=== PATIENT | female | born 1980 | race Two or more races ===

== ENCOUNTER 2025-03-30 13:05 | Emergency (ER) | payer OTHER ==
[~2025-03-30] VITALS: Ht 167.6 cm; Wt 94.1 kg
[2025-03-30 13:16] VITALS: TEMP 97.5
--- NOTE | 2025-03-30 14:28 | ED.PDOC ---
Eye-HPI HPI Comments 44-year-old female with a history of uveitis and bilateral cataract surgery brought in by family complaining of visual disturbances in her left eye, associated with eye pain for the last 2 days. Patient reports the medial aspect of her right eye visual field is �black,� and the lateral visual field appears cloudy. She also reports pressure-like eye discomfort. She denies any headache, nausea, vomiting, focal weakness or other symptoms. She states she has not been followed recently by an propeller tester. Chief Complaint: Eye Problem Time Seen by MD: 13:36 Allergies: Coded Allergies: Sulfamethoxazole w/Trimethoprim (Verified Allergy, Unknown, 03/30/25) Mode of Arrival: Ambulatory Past Medical History Past Medical History (Other): Uveitis Surgical History (Other): Bilateral cataract surgery MANAGER QA History: No Pertinent MANAGER QA History Family History Family History: Reviewed,noncontributory to illness Social History Smoker: Non-Smoker Alcohol: Denies ETOH Use Drugs: Denies Drug Use Lives In: Home All Other Systems: Reviewed and Negative (Comprehensive systems review obtained and negative except for what is stated in the HPI.) Physical Exam General Appearance: No Apparent Distress, Obese HEENT: PERRL/EOMI, Other (Face symmetric. Moist mucous membranes.) Neck: Full Range of Motion, Normal Inspection Respiratory: Lungs Clear, No Accessory Muscle Use, No Respiratory Distress, Normal Breath Sounds Cardiovascular: No Edema, No JVD, Regular Rate/Rhythm Breast Exam: Deferred Gastrointestinal: Non Tender, Soft Genitalia: Deferred Pelvic: Deferred Rectal: Deferred Extremities: Normal inspection, Normal range of motion, Non-tender, No pedal edema Neurologic: Alert (Oriented x4), pt skilled II-XII nml as Tested, Normal Affect, Normal Mood, Other (Ambulatory) Cerebellar Function: NOT DONE Reflexes: NOT DONE Skin: Dry, Normal Color, Warm Lymphatic: NOT DONE Was a procedure done? Was a procedure done?: No EENT DIFF Eye: Iritis/Uveitis, Retinal Artery Occlusion, Retinal Vein Occlusion, Other (CVA, ocular migraine, Brain space-occupying lesion, optic nerve disease, among others) X-Ray, Labs, Meds, VS Vital Signs Date Time Temp Pulse Resp B/P (MAP) Pulse Ox O2 Delivery O2 Flow Rate FiO2 03/30/25 15:03 64 16 98 Room Air* 0 21 03/30/25 15:03 64 16 165/90 (115) 98 03/30/25 13:16 97.5 71 17 155/84 (107) 97 97.5 Lab Test 03/30/25 14:33 03/30/25 13:13 Range/Units White Blood Count 8.7 4.4-10.8 10^3/uL Red Blood Count 4.86 4.0-5.20 10^6/uL Hemoglobin 13.9 12.2-16.2 g/dL Hematocrit 41.1 36.0-46.0 % Mean Corpuscular Volume 84.6 80.0-100.0 fL Mean Corpuscular Hemoglobin 28.5 28.0-32.0 pg Mean Corpuscular Hemoglobin Concent 33.7 32.0-36.0 g/dL Red Cell Distribution Width 13.9 11.8-14.3 % Platelet Count 241 140-450 10^3/uL Mean Platelet Volume 9.1 6.9-10.8 fL Neutrophils (%) (Auto) 61.8 37.0-80.0 % Lymphocytes (%) (Auto) 29.8 10.0-50.0 % Monocytes (%) (Auto) 5.8 0.0-12.0 % Eosinophils (%) (Auto) 1.8 0.0-7.0 % Basophils (%) (Auto) 0.8 0.0-2.0 % Neutrophils # (Auto) 5.4 1.6-8.6 10 ^3/uL Lymphocytes # (Auto) 2.6 0.4-5.4 10 ^3/uL Monocytes # (Auto) 0.5 0-1.3 10 ^3/uL Eosinophils # (Auto) 0.2 0-0.8 10 ^3/uL Basophils # (Auto) 0.1 0-0.2 10 ^3/uL Nucleated Red Blood Cells 0.0 % Sodium Level 141 136-145 mmol/L Potassium Level 4.0 3.5-5.1 mmol/L Chloride Level 109 H 98-107 mmol/L Carbon Dioxide Level 25 20-31 mmol/L Anion Gap 7 5-15 Blood Urea Nitrogen 10 9-23 mg/dL Creatinine 0.93 0.550-1.02 mg/dL Glomerular Filtration Rate Calc 77 >90 mL/min BUN/Creatinine Ratio 10.8 10.0-20.0 Serum Glucose 100 74-106 mg/dL Calcium Level 9.0 8.7-10.4 mg/dL POC Glucose 102 70-106 mg/dl Current Medications Medications (Trade) Dose Ordered Sig/Candace Route Start Time Stop Time Status Last Admin Acetaminophen/ Hydrocodone Bitart (Elizabeth 5/325MG Tab) 1 tab ONCE ONCE PO 03/30/25 14:30 03/30/25 14:31 DC 03/30/25 14:40 PROCEDURE(s): HWOCT - HEAD WITHOUT CONTRAST REASON: R eye medial visual field loss, lateral visual field blurry ORDER NUMBER(s): [id number], ACCESSION NUMBER(s): [id number] EXAM: CT HEAD WITHOUT CONTRAST HISTORY: R eye medial visual field loss, lateral visual field blurry COMPARISON: None TECHNIQUE: Noncontrast axial CT images of the head were performed. Sagittal and coronal reformatted images were obtained. This CT exam was performed using 1 or more of the following dose reduction techniques: Automated exposure control, adjustment of the mA and/or kv according to patient size, or the use of iterat james reconstruction techniques. Radiation Dose: CTDI volume is 55.1 mGy. Dose-length product is 993.48 mGy*cm FINDINGS: No intracranial hemorrhage, mass, midline shift, hydrocephalus, or evidence of acute large vessel infarct. There are old lacunar infarcts of the left basal ganglia (images 26-29, series 2). There are postoperative changes of bilateral cataract extraction surgery. There is mild mucosal thickening of the ethmoid air cells and left sphenoid sinus. The bilateral mastoid air cells and middle ear spaces are clear. No cranial fracture or scalp edema. IMPRESSION: 1. No acute intracranial process. 2. Mild paranasal sinus disease. X-Ray, Labs, Meds, VS Comment 44-year-old female with a history of uveitis and previous bilateral cataract surgery brought in by family for evaluation of right eye medial visual field vision loss and lateral visual field disruption Vitals remarkable for BP 155/84 Exam unremarkable for abnormal visual acuity: 20/20 corrected OD, 20/25 corrected OS. There was a right eye medial upper quadrant visual loss. Patient reports blurred vision with the right eye lateral upper and lower quadrants. Rhythm strip independently interpreted by me: Sinus rhythm, rate 71, no ectopy. CT brain without contrast: IMPRESSION: 1. No acute intracranial process. 2. Mild paranasal sinus disease. CBC, basic metabolic panel unremarkable for any abnormality of acute significan ce Patient treated with the following in the ED: Elizabeth 5/325 mg p.o. On re-evaluation, patient reports no new neurologic changes. Plan is to transfer the patient for higher level of care, ophthalmology evaluation. Case was discussed with multiple higher level of care facilities including [facility] and [facility], who were both on saturation and were unable to accept the patient. [facility] advised me they do not have retinal surgery at their facility, so declined to accept the patient. We attempted contact with [facility], however there was no answer so a voicemail message was left. [facility] was also contacted for transfer and we were awaiting a call back. 1902 the patient stated she no longer wanted to wait. I was not advised that the patient signed out against medical advice, so I did not have an opportunity to explain the risks, benefits and alternatives to treatment. Patient was alert, oriented x4 and capable of making informed decisions at the time she signed out against medical advice. I did advise her prior to our attempts to transfer of her results and the need for ophthalmologic evaluation emergently. Time of 1ST Reevaluation: 16:14 Reevaluation 1ST: Improved Patient Education/Counseling: Diagnosis, Treatment, Need For Follow Up Family Education/Counseling: No Family Present Departure 1 Departure Time of Disposition: 14:27 Impression: Primary Impression: Hemianopia of right eye Disposition: 07 LEFT AGAINST MEDICAL ADVICE Condition: Guarded Discharged With: Self Critical Care Note Critical Care Time?: No Stability Stability form required: No Heart Score Heart Score: Heart Score Response (Comments) Value History N/A 0 EKG N/A 0 Age N/A 0 Risk Factors N/A 0 Troponin N/A 0 Total 0 I personally scribed for GOGO ROBERTS MD ([email or web address]) on 03/30/25 at 16:16. Electronically submitted by Blade Hobson ([email or web address]). GOGO ROBERTS MD March 30, 2025 14:28
[2025-03-30] MEDS: HYDROcodone-ACET 5/325MG TAB PO ONE (14:40)
[2025-03-30 14:45] LABS: Basophils # (auto) 0.1 10 ^3/uL (0-0.2); Basophils % (auto) 0.8 % (0.0-2.0); Eosinophils # (auto) 0.2 10 ^3/uL (0-0.8); Eosinophils % (auto) 1.8 % (0.0-7.0); Hematocrit 41.1 % (36.0-46.0); Hemoglobin 13.9 g/dL (12.2-16.2); Lymphocytes # (auto) 2.6 10 ^3/uL (0.4-5.4); Lymphocytes % (auto) 29.8 % (10.0-50.0); Mean Corpuscular Hemoglobin 28.5 pg (28.0-32.0); Mean Corpuscular Hgb Conc. 33.7 g/dL (32.0-36.0); Mean Corpuscular Volume 84.6 fL (80.0-100.0); Monocytes # (auto) 0.5 10 ^3/uL (0-1.3); Monocytes % (auto) 5.8 % (0.0-12.0); Neutrophils # (auto) 5.4 10 ^3/uL (1.6-8.6); Neutrophils % (auto) 61.8 % (37.0-80.0); Platelet Count (auto) 241 10^3/uL (140-450); Red Blood Cells 4.86 10^6/uL (4.0-5.20); Red Cell Distribution Width 13.9 % (11.8-14.3); White Blood Cell 8.7 10^3/uL (4.4-10.8)
[2025-03-30 14:56] LABS: Anion Gap 7 (5-15); Carbon Dioxide 25 mmol/L (20-31); Sodium 141 mmol/L (136-145)
[2025-03-30 15:02] LABS: BUN/Creatinine Ratio 10.8 (10.0-20.0); Blood Urea Nitrogen 10 mg/dL (9-23); Glucose 100 mg/dL (74-106)
[2025-03-30 15:03] VITALS: BP 165/90; PULSE 64; RESP 16; O2SAT 98
[2025-03-30 15:15] LABS: Chloride 109 mmol/L (98-107)
--- NOTE | 2025-03-30 15:39 | DVH ---
EXAM: CT HEAD WITHOUT CONTRAST HISTORY: R eye medial visual field loss, lateral visual field blurry COMPARISON: None TECHNIQUE: Noncontrast axial CT images of the head were performed. Sagittal and coronal reformatted i mages were obtained. This CT exam was performed using 1 or more of the following dose reduction techn iques: Automated exposure control, adjustment of the mA and/or kv according to patient size, or the u se of iterative reconstruction techniques. Radiation Dose: CTDI volume is 55.1 mGy. Dose-length product is 993.48 mGy*cm FINDINGS: No intracranial hemorrhage, mass, midline shift, hydrocephalus, or evidence of acute large vessel inf arct. There are old lacunar infarcts of the left basal ganglia (images 26-29, series 2). There are po stoperative changes of bilateral cataract extraction surgery. There is mild mucosal thickening of the ethmoid air cells and left sphenoid sinus. The bilateral mastoid air cells and middle ear spaces are clear. No cranial fracture or scalp edema. IMPRESSION: 1. No acute intracranial process. 2. Mild paranasal sinus disease.
== END 2025-03-30 19:03 | disposition left against medical advice (07) ==
LOC: ER 13:05
DX: H53.47 Heteronymous bilateral field defects (principal); Z98.890 Other specified postprocedural states; Z88.2 Allergy status to sulfonamides
CPT/HCPCS: 36415; 70450; 80048; 82947; 82962; 85025